=== PATIENT | male | born 2000 | race Two or more races ===

== ENCOUNTER 2020-12-12 15:50 | Emergency (ER) | payer OTHER ==
[~2020-12-12] VITALS: Ht 152.4 cm; Wt 73.5 kg
--- NOTE | 2020-12-12 16:28 | NUR ---
PATIENT WAS SEEN BY . DC,RX AND FOLLOW UP INSTRUCTIONS GIVEN AND EXPLAINED TO PATIENT WHO STATES HE UNDERSTANDS ALL INSTRUCTIONS
== END 2020-12-12 16:29 | disposition home or self-care (01) ==
LOC: ER 15:50
DX: L08.9 Local infection of the skin and subcutaneous tissue, unspecified (principal); B35.3 Tinea pedis
CPT/HCPCS: A4663